=== PATIENT | male | born 1990 | race Caucasian/White ===

== ENCOUNTER 2018-06-11 13:13 | Inpatient (IN) | payer SELFPAY ==
[2018-06-11 13:16] VITALS: BMI 29.9
[2018-06-11] MEDS ORDERED: SODIUM CHLORIDE 1,000 ML IV STA (14:06)
[2018-06-11] MEDS ORDERED: ALBUTEROL SO4 2.5/IPRATROPIUM 0.5 INH SOL 3 ML VIAL.NEB. NEB ONE (14:11)
--- NOTE | 2018-06-11 14:12 | PDOC ---
History of Present Illness - General Chief Complaint: Diarrhea Stated Complaint: SENT BY PCP Time Seen by Provider: 06/11/18 13:44 History Source: Patient Exam Limitations: No Limitations - History of Present Illness Initial Comments: 06/11/18 18:16 Patient is a 28-year-old male past medical history of HIV (CD4 > 1000, viral load < 20 1 mo ago) presents to the ER with 1 day of diarrhea and abdominal cramping. Patient states he went to see his primary care doctor however he was referred to the ER for sinus tachycardia at 120 with associated symptoms. Patient states he last ate a coffee and cinnamon stick from [employer] yesterday. He also admits to palpitations and headache. Denies fevers, chills, shortness of breath, difficulty breathing, nausea, vomiting, constipation comfort, urgency and hematuria. Patient did receive a flu shot this year. Past History - Travel Traveled outside of the country in the last 30 days: No Close contact w/someone who was outside of country & ill: No - Past Medical History Allergies/Adverse Reactions: Allergies Allergy/AdvReac Type Severity Reaction Status Date / Time Fish Containing Products Allergy Unknown Verified 06/08/15 23:14 Home Medications: Ambulatory Orders Emtricitab/Rilpiviri/Tenof Ala [Odefsey Tablet] 1 each PO DAILY #30 tablet 01/20 Loratadine [Claritin -] 10 mg PO DAILY #30 tablet 04/27/18 Multivitamin,Ther and Minerals [Vitamin and Minerals] 1 each PO DAILY #30 tablet 04/27/18 Albuterol Sulfate Inhaler - [Ventolin HFA Inhaler -] 1 - 2 inh PO QID PRN #1 inhaler 05/11/18 Famotidine [Pepcid -] 20 mg PO DAILY PRN #30 tablet 05/11/18 Fluticasone Propionate [Flovent Diskus] 100 mcg IH BID #1 disk.w.dev 05/11/18 Lactobacillus Acidophilus [Bacid -] 1 each PO DAILY #30 capsule 06/13/18 Levofloxacin 750 mg PO DAILY #7 tablet 06/13/18 Metronidazole 500 mg PO Q8H #21 tablet 06/13/18 Anemia: No Asthma: Yes Cancer: No Cardiac Disorders: No CVA: No COPD: No CHF: No Dementia: No Diabetes: No GI Disorders: No Disorders: No HTN: No Hypercholesterolemia: No Liver Disease: No Seizures: No Thyroid Disease: No - Surgical History Abdominal Surgery: No Appendectomy: No Cardiac Surgery: No Cholecystectomy: No Lung Surgery: No Neurologic Surgery: No Orthopedic Surgery: No - Immunization History Immunization Up to Date: Yes - Suicide/Smoking/Psychosocial Hx Smoking Status: No Smoking History: Never smoked Have you smoked in the past 12 months: No Number of Cigarettes Smoked Daily: 0 Cigars Per Day: 0 Hx Alcohol Use: Yes (1 drink/week) Drug/Substance Use Hx: No Substance Use Type: None Hx Substance Use Treatment: No Review of Systems - Review of Systems Able to Perform ROS?: Yes Comments:: 06/11/18 19:04 CONSTITUTIONAL: Absent: fever, chills, diaphoresis, generalized weakness, malaise, loss of appetite HEENT: Absent: rhinorrhea, nasal congestion, throat pain, throat swelling, difficulty swallowing, mouth swelling, ear pain, eye pain, visual Changes CARDIOVASCULAR: Absent: chest pain, loss of consciousness, palpitations, irregular heart rate, peripheral edema RESPIRATORY: Absent: cough, shortness of breath, dyspnea with exertion, orthopnea, wheezing, stridor, hemoptysis GASTROINTESTINAL: Present: diarrhea Absent: abdominal pain, abdominal distension, nausea, vomiting , constipation, melena, hematochezia GENITOURINARY: Absent: dysuria, frequency, urgency, hesitancy, hematuria, flank pain, genital pain MUSCULOSKELETAL: Absent: myalgia, arthralgia, joint swelling SKIN: Absent: rash, itching, pallor HEMATOLOGIC/IMMUNOLOGIC: Absent: easy bleeding, easy bruising, lymphadenopathy, frequent infections ENDOCRINE: Absent: unexplained weight gain, unexplained weight loss, heat intolerance, cold intolerance NEUROLOGIC: Absent: headache, focal weakness or paresthesias, dizziness, unsteady gait, seizure, mental status changes, bladder or bowel incontinence PSYCHIATRIC: Absent: anxiety, depression, suicidal or homicidal ideation, hallucinations. Is the patient limited Amharic proficient: No *Physical Exam - Vital Signs Last Vital Signs Temp Pulse Resp BP Pulse Ox 99.4 F 110 H 18 136/75 96 06/11/18 13:15 06/11/18 13:15 06/11/18 13:15 06/11/18 13:15 06/11/18 13:15 - Physical Exam Comments: 06/11/18 19:04 GENERAL: Well developed, well nourished. Awake and alert. No acute distress. HEENT: Normocephalic, atraumatic. PERRLA, EOMI. No conjunctival pallor. Sclera are non- icteric. Moist mucous membranes. Oropharynx is clear. NECK: Supple. Full ROM. No JVD. Carotid pulses 2+ and symmetric, without bruits. No thyromegaly. No lymphadenopathy. CARDIOVASCULAR: Regular rate and rhythm. No murmurs, rubs, or gallops. Distal pulses are 2+ and symmetric. PULMONARY: No evidence of respiratory distress. Lungs clear to auscultation bilaterally. No wheezing, rales or rhonchi. ABDOMINAL: Epigastric tenderness and RLQ, LLQ pain to palpation. Soft. Non-distended. No rebound or guarding. No organomegaly. Normoactive bowel sounds. MUSCULOSKELETAL Normal range of motion at all joints. No bony deformities or tenderness. No CVA tenderness. EXTREMITIES: No cyanosis. No clubbing. No edema. No calf tenderness. SKIN: Warm and dry. Normal capillary refill. No rashes. No jaundice. NEUROLOGICAL: Alert, awake, appropriate. Cranial nerves 2-12 intact. No deficits to light touch and temperature in face, upper extremities and lower extremities. No motor deficits in the in face, upper extremities and lower extremities. Normoreflexic in the upper and lower extremities. Normal speech. Toes are down- going bilaterally. Gait is normal without ataxia. PSYCHIATRIC: Cooperative. Good eye contact. Appropriate mood and affect. Moderate Sedation - Procedure Monitoring Vital Signs: Procedure Monitoring Vital Signs Temperature 99.4 F 06/11/18 13:15 Pulse Rate 110 H 06/11/18 13:15 Respiratory Rate 18 06/11/18 13:15 Blood Pressure 136/75 06/11/18 13:15 O2 Sat by Pulse Oximetry (%) 96 06/11/18 13:15 ED Treatment Course - LABORATORY CBC & Chemistry Diagram: 06/13/18 06:30 06/13/18 06:30 *DC/Admit/Observation/Transfer Diagnosis at time of Disposition: Colitis - Discharge Dispostion Condition at time of disposition: Stable - Prescriptions - Referrals - Patient Instructions - Post Discharge Activity
[2018-06-11 15:35] LABS: BASO % 0.4 % (0-2.0); EOS % 0.1 % (0-4.5); HEMATOCRIT 44.9 % (35.4-49); HEMOGLOBIN 15.6 GM/dL (11.7-16.9); LYMPH % 13.3 % (8-40); MCHC 34.8 g/dl (32.0-35.9); MEAN CELL VOLUME 91.8 fl (80-96); MEAN PLT VOLUME 9.9 fl (7.5-11.1); NEUT % 78.2 % (42.8-82.8); PLATELET COUNT 216 K/MM3 (134-434); RBC 4.89 M/mm3 (4.00-5.60); RDW 13.4 % (11.9-15.9); WHITE BLOOD COUNT 15.6 K/mm3 (4.0-10.0)
[2018-06-11 16:23] LABS: ALBUMIN 4.3 g/dl (3.4-5.0); ALK PHOS 66 U/L (45-117); ANION GAP 9 MMOL/L (8-16); BILIRUBIN,TOTAL 0.8 mg/dL (0.2-1); BLOOD UREA NITROGEN 13 mg/dL (7-18); CALCIUM 8.9 mg/dL (8.5-10.1); CHLORIDE 102 mmol/L (98-107); CO2 27 mmol/L (21-32); CREATININE 1.1 mg/dL (0.55-1.3); GLUCOSE,RANDOM 80 mg/dL (74-106); POTASSIUM 3.8 mmol/L (3.5-5.1); SGOT/AST 23 U/L (15-37); SGPT/ALT 26 U/L (13-61); SODIUM 137 mmol/L (136-145); TOT PROT 8.4 g/dl (6.4-8.2)
[2018-06-11 17:27] LABS: URINE APPEARANCE CLEAR; URINE BILIRUBIN NEGATIVE (<2.0 mg/dL); URINE COLOR DKYELLOW; URINE GLUCOSE (UA) NEGATIVE (NEGATIVE); URINE KETONE TRACE (NEGATIVE); URINE LEUK ESTERASE NEGATIVE (NEGATIVE); URINE NITRITE NEGATIVE (NEGATIVE); URINE PROTEIN 1+ (NEGATIVE); URINE UROBILINOGEN NEGATIVE mg/dL (0.2-1.0)
[2018-06-11 17:37] LABS: URINE BACTERIA RARE /hpf (NONE SEEN); URINE MUCUS MODERATE
[2018-06-11] MEDS ORDERED: CIPROFLOXACIN 400 MG/D5W 400 MG/200 ML IVPB IVPB ONE (21:04)
--- NOTE | 2018-06-11 21:14 | PDOC ---
*Physical Exam - Vital Signs Last Vital Signs Temp Pulse Resp BP Pulse Ox 99.4 F 110 H 18 136/75 96 06/11/18 13:15 06/11/18 13:15 06/11/18 13:15 06/11/18 13:15 06/11/18 13:15 ED Treatment Course - LABORATORY CBC & Chemistry Diagram: 06/11/18 15:24 06/11/18 15:24 - ADDITIONAL ORDERS Additional order review: Laboratory Results 06/11/18 06/11/18 17:13 15:24 Sodium 137 Potassium 3.8 Chloride 102 Carbon Dioxide 27 Anion Gap 9 BUN 13 Creatinine 1.1 Creat Clearance w eGFR > 60 Random Glucose 80 Calcium 8.9 Total Bilirubin 0.8 AST 23 ALT 26 Alkaline Phosphatase 66 Total Protein 8.4 H Albumin 4.3 Urine Color Dkyellow Urine Appearance Clear Urine pH 5.0 Ur Specific [place] 1.030 Urine Protein 1+ H Urine Glucose (UA) Negative Urine Ketones Trace H Urine Blood Negative Urine Nitrite Negative Urine Bilirubin Negative Urine Urobilinogen Negative Ur Leukocyte Esterase Negative Urine WBC (Auto) <1 Urine RBC (Auto) None Urine Bacteria Rare Urine Mucus Moderate 06/11/18 15:24 RBC 4.89 MCV 91.8 MCHC 34.8 RDW 13.4 MPV 9.9 Neutrophils % 78.2 D Lymphocytes % 13.3 D Monocytes % 8.0 Eosinophils % 0.1 D Basophils % 0.4 - Medications Given in the ED: ED Medications Discontinued Medications Generic Name Dose Route Start Last Admin Trade Name Freq PRN Reason Stop Dose Admin Albuterol/Ipratropium 1 amp 06/11/18 14:11 06/11/18 15:34 Duoneb - NEB 06/11/18 14:12 1 amp ONCE ONE Administration Sodium Chloride 1,000 mls @ 1,000 mls/hr 06/11/18 14:06 06/11/18 15:34 Normal Saline - IV 06/11/18 15:05 1,000 mls/hr ASDIR STA Administration Medical Decision Making - Medical Decision Making Patient signed out to me by MATILDE Benson CT raises concern for possible colitis vs appendicitis (no oral contrast was administered for test) On assessment, patient appears comfortable, abdomen with TTP along RUQ and RLQ ( RLQ > RUQ) Will start on Cipro and Flagyl D/W Dr. Aden - recommend admission for further eval given inconclusive CT results 06/11/18 21:11 *DC/Admit/Observation/Transfer Diagnosis at time of Disposition: Colitis - Discharge Dispostion Condition at time of disposition: Stable Decision to Admit order: Yes - Referrals Referrals: Garima Goldstein, [facility] [Primary Care Provider] - - Patient Instructions - Post Discharge Activity
--- NOTE | 2018-06-11 21:53 | HP ---
CHIEF COMPLAINT: Diarrhea PCP: Dr. Garima Goldstein HISTORY OF PRESENT ILLNESS: 28yo M with h/o HIV (CD4 >1000, VL <20 1 mo. prior) who presents today with 2 days of foul-smelling water-y diarrhea. Pt reports symptoms started two days ago after having [employer] latte and cinnamon stick. He reports >12 episodes of diarrhea in the past 24hrs. Pt initially thought it was a common virus and decided to see his PCP 1 day into his symptoms, however after being found to have severe diarrhea and sinus tachy to 120bpm he was recommended to go to the ER. Pt also endorses associated cramping RLQ and lower R-mid region pain which at maximum intensity is a 9/10 and lowest intensity is 4/10. He has tried to eat and drink, however has had 3 episodes of NB/NB emesis. Of noted, pt had strep pharyngitis 1-2 wks prior and was given Clindamycin for 7 days. Pt reports resolved pharyngitis symptoms. Denies any headache, lightheadedness, blurry vision, nausea, shortness of breath , chest pain, dysuria, polyuria, hematuria, back pain, edema of lower extremities. Denies any travel outside of [facility] recently. Denies sick contacts. Denies other unusual meals compared to his regular diet. PAST MEDICAL HISTORY: HIV (from ex-bf, follows at [facility] regularly; compliant with Odefsey) PAST SURGICAL HISTORY: None Social History: Smoking: Denies Alcohol: Denies Drugs: Denies Family History: Noncontributory Allergies Fish Containing Products Allergy (Unknown, Verified 06/08/15 23:14) RAST test 01/08/13 Fish/Shell Mix 4.02, Class IV HOME MEDICATIONS: Home Medications Medication Instructions Recorded Emtricitab/Rilpiviri/Tenof Ala 1 each PO DAILY #30 tablet 01/20/18 [Odefsey Tablet] Multivitamin,Ther and Minerals 1 each PO DAILY #30 tablet 04/27/18 [Vitamin and Minerals] Albuterol Sulfate Inhaler - 1 - 2 inh PO QID PRN #1 inhaler 05/11/18 [Ventolin HFA Inhaler -] Fluticasone Prop 0.05% Nasal 1 - 2 spray NS DAILY #1 spray.pump 05/11/18 [Flonase -] REVIEW OF SYSTEMS As Per HPI PHYSICAL EXAMINATION Vital Signs - 24 hr 06/11/18 06/11/18 13:15 21:46 Temperature 99.4 F 99.6 F Pulse Rate 110 H Pulse Rate [ 108 H Apical] Respiratory 18 18 Rate Blood Pressure 136/75 Blood Pressure 132/80 [Left Arm] O2 Sat by Pulse 96 98 Oximetry (%) GENERAL: NAD, awake, alert, and fully oriented HEENT: NC/AT, EOMI, HERO, sclera anicteric, dry-moist mucosa, no plaques noted , no posterior oropharynx erythema or exudates, no ulcerations. No lymphadenopathy LUNGS: CTA bilaterally. No wheezes, and no crackles. No accessory muscle use. HEART: Tachycardic, regular rhythm, normal S1 and S2 without murmur ABDOMEN: Soft, RLQ tenderness to palpation, normo-hyperactive BS, nondistended, nontympanitic, no guarding, no rebound, negative [place], Psoas, and Obturator sign. MUSCULOSKELETAL: No CVA tenderness. EXTREMITIES: 2+ radial pulses, warm, well-perfused. No peripheral edema. NEUROLOGICAL: Nonfocal exam. Normal speech. Normal gait. PSYCHIATRIC: Cooperative. Good eye contact. Appropriate mood and affect. SKIN: Warm, dry, no rashes or lesions noted Laboratory Results 06/11/18 06/11/18 06/11/18 15:23 15:24 15:24 WBC 15.6 H RBC 4.89 Hgb 15.6 Hct 44.9 MCV 91.8 MCH 32.0 MCHC 34.8 RDW 13.4 Plt Count 216 MPV 9.9 Absolute Neuts (auto) 12.2 H Neutrophils % 78.2 D Lymphocytes % 13.3 D Monocytes % 8.0 Eosinophils % 0.1 D Basophils % 0.4 Nucleated RBC % 0 Sodium 137 Potassium 3.8 Chloride 102 Carbon Dioxide 27 Anion Gap 9 BUN 13 Creatinine 1.1 Creat Clearance w eGFR > 60 Random Glucose 80 Calcium 8.9 Total Bilirubin 0.8 AST 23 ALT 26 Alkaline Phosphatase 66 Total Protein 8.4 H Albumin 4.3 Urine Color Urine Appearance Urine pH Ur Specific [place] Urine Protein Urine Glucose (UA) Urine Ketones Urine Blood Urine Nitrite Urine Bilirubin Urine Urobilinogen Ur Leukocyte Esterase Urine WBC (Auto) Urine RBC (Auto) Urine Bacteria Urine Mucus Influenza A (Rapid) Negative Influenza B (Rapid) Negative 06/11/18 17:13 WBC RBC Hgb Hct MCV MCH MCHC RDW Plt Count MPV Absolute Neuts (auto) Neutrophils % Lymphocytes % Monocytes % Eosinophils % Basophils % Nucleated RBC % Sodium Potassium Chloride Carbon Dioxide Anion Gap BUN Creatinine Creat Clearance w eGFR Random Glucose Calcium Total Bilirubin AST ALT Alkaline Phosphatase Total Protein Albumin Urine Color Dkyellow Urine Appearance Clear Urine pH 5.0 Ur Specific [place] 1.030 Urine Protein 1+ H Urine Glucose (UA) Negative Urine Ketones Trace H Urine Blood Negative Urine Nitrite Negative Urine Bilirubin Negative Urine Urobilinogen Negative Ur Leukocyte Esterase Negative Urine WBC (Auto) <1 Urine RBC (Auto) None Urine Bacteria Rare Urine Mucus Moderate Influenza A (Rapid) Influenza B (Rapid) ASSESSMENT/PLAN: PO intolerance 2/2 to acute colitis Leukocytosis HIV infection --Bowel rest --Continue to hydrate NS@125cc/hr --Levaquin 750mg daily IVPB --Flagyl 500mg q8h IVPB --C. diff ordered --Ova and parasites ordered --Images reviewed --Due to prominence of appendix will consult surgery for recommendations --Continue Odefsey daily (home dose) -Current VL undetectable FEN: Fluids: NS@125cc/hr; can bolus as needed Electrolyte abnormalities: None currently Nutrition: Bowel rest for now PPX: DVT - Low risk; early ambulation Dispo: Med-surg, r/o C. diff Case discussed with Dr. Carla Downs, Do - IM PGY-2 Visit type - Emergency Visit Emergency Visit: Yes ED Registration Date: 06/11/18 Care time: The patient presented to the Emergency Department on the above date and was hospitalized for further evaluation of their emergent condition. - New Patient This patient is new to me today: Yes Date on this admission: 06/12/18 - Critical Care Critical Care patient: No
[2018-06-11] MEDS: SODIUM CHLORIDE 1,000 ML IV SCH (23:03)
--- NOTE | 2018-06-12 02:10 | PN ---
Teaching Attending Note Name of Resident: Ezio Garcia ATTENDING PHYSICIAN STATEMENT I saw and evaluated the patient. I reviewed the resident's note and discussed the case with the resident. I agree with the resident's findings and plan as documented. SUBJECTIVE: Seen and examined; please see resident note for further historical information. Briefly, this is a 28 y/o male presenting to the ER with a CC of abdominal pain; he has a PMH of HIV on HAART and he states he is compliant with all medications. Last CD4 >1000 at [facility]. He has 2 days of watery, foul smelling diarrhea and abdominal pain worse R>L. He also had some nausea and an episode of bilious vomiting. The symptoms progressed thus he chose to come to the ER after being recommended to do so by his PCP. Of note is that he completed a course of clindamycin for strep pharyngitis 2 weeks ago with no complications. CT done in the ER shows appendicitis/collit 10 sys ROS done and negative aside from HPI PMH, PSH, Family hx, Social hx reviewed Medications reviewed; pending reconciliation OBJECTIVE: VS, labs, imaging reviewed NAD, AAO, resting comforably in chair NC AT EOMI PERRLA Tender R>L with slight distention, +BS Lungs CTAB, w/ sym exp RRR s1/2 no mgr CN2-12 wnl, no fnd Normal mood, appropriate affect CT reviewed; R-concentric wall edema in the R-colon which could represent colitis vs. underdistention. Recommended followup with PO contrast to be considered to help facilitate R-colon imaging. Furthermore, the appendiz is slightly prominent with some fluid in the lumen and minimal to mild wall thickening. Acute appendicitis vs. reactive to the previously described colitis. ASSESSMENT AND PLAN: Patient presents with likely colitis +/- appendicitis; history of HIV on HAART and is compliant. 1) Acute Colitis +/- Appendicitis -Noted on imaging; will keep him NPO and place him on maintenance fluids. Med surg floor. -Pain and nausea control -Levaquin and Flagyl; convert to PO when clinically appropriate -Surgical consult; further imaging per thier service 2) HIV on HAART -Continue home medications Full Code
[2018-06-12] MEDS: SODIUM CHLORIDE 1,000 ML IV SCH ×3 (02:30→22:22)
[2018-06-12 08:23] LABS: HEMATOCRIT 38.3 % (35.4-49); HEMOGLOBIN 13.4 GM/dL (11.7-16.9); MCH 31.9 pg (25.7-33.7); MCHC 34.9 g/dl (32.0-35.9); MEAN CELL VOLUME 91.4 fl (80-96); MEAN PLT VOLUME 9.6 fl (7.5-11.1); PLATELET COUNT 173 K/MM3 (134-434); RBC 4.19 M/mm3 (4.00-5.60); RDW 13.4 % (11.9-15.9); WHITE BLOOD COUNT 9.3 K/mm3 (4.0-10.0)
[2018-06-12 08:53] LABS: ANION GAP 5 MMOL/L (8-16); BLOOD UREA NITROGEN 9 mg/dL (7-18); CALCIUM 7.7 mg/dL (8.5-10.1); CHLORIDE 108 mmol/L (98-107); CO2 26 mmol/L (21-32); GLUCOSE,RANDOM 90 mg/dL (74-106); PHOSPHOROUS 2.7 mg/dL (2.5-4.9); POTASSIUM 3.5 mmol/L (3.5-5.1); SODIUM 139 mmol/L (136-145)
[2018-06-12] MEDS ORDERED: PT OWN MED DRAWER 7, Y5N ONE (09:02)
[2018-06-12] MEDS ORDERED: CEFTRIAXONE 1 GM in DEXTROSE 5%-WATER - 50 ML IVPB SCH (10:00)
--- NOTE | 2018-06-12 11:21 | PN ---
Progress Note, Physician - Current Medication List Current Medications: Active Medications Metronidazole (Flagyl 500mg Premixed Ivpb -) 500 mg in 100 mls @ 100 mls/hr IVPB Q8H-IV SENA Last Admin: 06/12/18 09:24 Dose: 100 mls/hr Sodium Chloride (Normal Saline -) 1,000 mls @ 125 mls/hr IV ASDIR SENA Last Admin: 06/12/18 02:30 Dose: 125 mls/hr Levofloxacin (Levaquin 750 Mg Premixed Ivpb -) 750 mg in 150 mls @ 100 mls/hr IVPB DAILY SENA; Protocol Last Admin: 06/12/18 10:29 Dose: 100 mls/hr - Objective Vital Signs: Vital Signs Temperature 98.0 F 06/12/18 06:00 Pulse Rate 87 06/12/18 06:00 Respiratory Rate 20 06/12/18 06:00 Blood Pressure 102/67 06/12/18 06:00 O2 Sat by Pulse Oximetry (%) 99 06/12/18 03:55 Labs: CBC, BMP 06/12/18 07:40 06/12/18 07:40
--- NOTE | 2018-06-12 11:22 | CONSULT ---
Consult Consult Specialty:: General Surgery Reason for Consultation:: Appendicitis? - History of Present Illness Chief Complaint: diarrhea History of Present Illness: 28yo male PMH HIV (CD4 >1000, VL <20 1 mo. prior) who presents today with 2 days of foul-smelling water-y diarrhea. Pt reports symptoms started two days ago after having [employer] latte and cinnamon stick. He reports >12 episodes of diarrhea in the past 24hrs. Pt initially thought it was a common virus and decided to see his PCP 1 day into his symptoms, however after being found to have severe diarrhea and sinus tachy to 120bpm he was recommended to go to the ER. Pt also endorses associated cramping RLQ and lower R-mid region pain which at maximum intensity is a 9/10 and lowest intensity is 4/10. He has tried to eat and drink, however has had 3 episodes of NB/NB emesis. We were asked to assess. - History Source History Provided By: Patient, Medical Record Limitations to Obtaining History: No Limitations - Alcohol/Substance Use Hx Alcohol Use: Yes (1 drink/week) History of Substance Use: reports: None - Smoking History Smoking history: Never smoked Have you smoked in the past 12 months: No Aproximately how many cigarettes per day: 0 - Social History Usual Living Arrangement: With Spouse History of Recent Travel: No Home Medications - Allergies Allergies/Adverse Reactions: Allergies Allergy/AdvReac Type Severity Reaction Status Date / Time Fish Containing Products Allergy Unknown Verified 06/08/15 23:14 - Home Medications Home Medications: Ambulatory Orders Emtricitab/Rilpiviri/Tenof Ala [Odefsey Tablet] 1 each PO DAILY #30 tablet 01/20 Loratadine [Claritin -] 10 mg PO DAILY #30 tablet 04/27/18 Multivitamin,Ther and Minerals [Vitamin and Minerals] 1 each PO DAILY #30 tablet 04/27/18 Albuterol Sulfate Inhaler - [Ventolin HFA Inhaler -] 1 - 2 inh PO QID PRN #1 inhaler 05/11/18 Famotidine [Pepcid -] 20 mg PO DAILY PRN #30 tablet 05/11/18 Fluticasone Prop 0.05% Nasal [Flonase -] 1 - 2 spray NS DAILY #1 spray.pump Fluticasone Propionate [Flovent Diskus] 100 mcg IH BID #1 disk.w.dev 05/11/18 Family Disease History - Family Disease History Family Disease History: Diabetes: Mother (pre-diabetes), Heart Disease: Grandparent (maternal GM - HTN, heart murmur, a.fib, COPD), Father (coronary artery disease, h/o bypass) Review of Systems - Review of Systems Constitutional: denies: Chills, Fever Eyes: denies: Blind Spots, Recent Change in Vision HENT: denies: Difficult Swallowing, Throat Pain Neck: denies: Decreased ROM, Pain on Movement Cardiovascular: denies: Chest Pain, Palpitations Respiratory: denies: Cough, SOB Gastrointestinal: reports: Abdominal Pain, Diarrhea. denies: Bloating, Constipation, Indigestion, Melena, Nausea, Vomiting Genitourinary: reports: Burning, Dysuria. denies: Discharge, Frequency Breasts: reports: No Symptoms Reported. denies: Pain Musculoskeletal: denies: Muscle Pain, Muscle Weakness Neurological: denies: Syncope, Tremors Endocrine: denies: Unexplained Weight Gain, Unexplained Weight Loss Hematology/Lymphatic: denies: Easily Bruised, Excessive Bleeding Psychiatric: denies: Anxiety, Depression Physical Exam Vital Signs: Vital Signs Temperature 98.0 F 06/12/18 06:00 Pulse Rate 87 06/12/18 06:00 Respiratory Rate 20 06/12/18 06:00 Blood Pressure 102/67 06/12/18 06:00 O2 Sat by Pulse Oximetry (%) 99 06/12/18 03:55 Constitutional: Yes: Well Nourished, No Distress, Calm Eyes: Yes: Conjunctiva Clear, EOM Intact HENT: Yes: Atraumatic, Normocephalic Neck: Yes: Supple, Trachea Midline Cardiovascular: Yes: Regular Rate and Rhythm, S1, S2 Respiratory: Yes: Regular, CTA Bilaterally Gastrointestinal: Yes: Normal Bowel Sounds, Soft. No: Abdomen, Obese, Ascites, Hepatomegaly, Hernia, Palpable Mass, Tenderness, Tenderness, Epigastrium, Tenderness, Rebound ...Rectal Exam: Yes: Sphincter Tone Normal. No: Hemorrhoids/External Renal/: No: CVA Tenderness - Left, CVA Tenderness - Right Breast(s): No: Gynecomastia, Mass Musculoskeletal: No: Muscle Pain, Muscle Weakness Extremities: No: Cool, Cyanosis Edema: No Peripheral Pulses WNL: Yes Integumentary: No: Jaundice, Rash, Skin Tear Neurological: Yes: Alert, Oriented Psychiatric: Yes: Alert, Oriented Labs: CBC, BMP 06/12/18 07:40 06/12/18 07:40 Imaging - Results Cat Scan: Report Reviewed, Image Reviewed (appendix is patent contrast filled) Problem List - Problems (1) Diarrhea Assessment/Plan: 28yo with MMP presents with diarrhea, andominal pain has improved. Non-tender on exam. Reviewed CT scan [facility] radiologist. No acute surgical intervention is indicated. IVF hydration supportive medical care send C. diff screening recall as needed Thank you for the opportunity to participate in the care of this patient. Code(s): R19.7 - DIARRHEA, UNSPECIFIED Qualifiers: Diarrhea type: presumed infectious Qualified Code(s): R19.7 - Diarrhea, unspecified (2) Asymptomatic HIV infection Code(s): Z21 - ASYMPTOMATIC HUMAN IMMUNODEFICIENCY VIRUS INFECTION STATUS (3) Gastroenteritis Code(s): K52.9 - NONINFECTIVE GASTROENTERITIS AND COLITIS, UNSPECIFIED (4) Asthma Code(s): J45.909 - UNSPECIFIED ASTHMA, UNCOMPLICATED Qualifiers: Asthma severity: mild Asthma persistence: intermittent Asthma complication type: uncomplicated Qualified Code(s): J45.20 - Mild intermittent asthma, uncomplicated
--- NOTE | 2018-06-12 12:32 | PN ---
Progress Note (short form) - Note Progress Note: states abdominal pain has improved. diarrhea persists. denies Cp, SOB, fever, chills, N/V/C. was on clindamycin for scrotal infection for 10days which he recently completed Current Medications Generic Name Dose Route Start Last Admin Trade Name Melany PRN Reason Stop Dose Admin Metronidazole 500 mg in 100 mls @ 100 mls/hr 06/12/18 06:00 06/12/18 09:24 Flagyl 500mg Premixed Ivpb - IVPB 100 mls/hr Q8H-IV SENA Administration Sodium Chloride 1,000 mls @ 125 mls/hr 06/11/18 22:45 06/12/18 02:30 Normal Saline - IV 125 mls/hr ASDIR SENA Administration Levofloxacin 750 mg in 150 mls @ 100 mls/hr 06/12/18 10:00 06/12/18 10:29 Levaquin 750 Mg Premixed Ivpb - IVPB 100 mls/hr DAILY SENA Administration Protocol Last Vital Signs Temp Pulse Resp BP Pulse Ox 98.0 F 82 20 103/51 L 99 06/12/18 08:55 06/12/18 08:55 06/12/18 08:55 06/12/18 08:55 06/12/18 03:55 General NAD CV S1 S2 RRR no murmur/rub/gallop LUngs CTA B/L No wheezing/rales/rhonchi Abdomen +RLQ tenderness ND, no rebound or guarding. neg mcburny point, neg obtruator sign CBCD WBC 9.3 K/mm3 (4.0-10.0) 06/12/18 07:40 RBC 4.19 M/mm3 (4.00-5.60) 06/12/18 07:40 Hgb 13.4 GM/dL (11.7-16.9) 06/12/18 07:40 Hct 38.3 % (35.4-49) 06/12/18 07:40 MCV 91.4 fl (80-96) 06/12/18 07:40 MCHC 34.9 g/dl (32.0-35.9) 06/12/18 07:40 RDW 13.4 % (11.9-15.9) 06/12/18 07:40 Plt Count 173 K/MM3 (134-434) 06/12/18 07:40 MPV 9.6 fl (7.5-11.1) 06/12/18 07:40 CMP Sodium 139 mmol/L (136-145) 06/12/18 07:40 Potassium 3.5 mmol/L (3.5-5.1) 06/12/18 07:40 Chloride 108 mmol/L (98-107) H 06/12/18 07:40 Carbon Dioxide 26 mmol/L (21-32) 06/12/18 07:40 Anion Gap 5 MMOL/L (8-16) L 06/12/18 07:40 BUN 9 mg/dL (7-18) 06/12/18 07:40 Creatinine 1.0 mg/dL (0.55-1.3) 06/12/18 07:40 Creat Clearance w eGFR > 60 (>60) 06/12/18 07:40 Calcium 7.7 mg/dL (8.5-10.1) L 06/12/18 07:40 Total Bilirubin 0.8 mg/dL (0.2-1) 06/11/18 15:24 AST 23 U/L (15-37) 06/11/18 15:24 ALT 26 U/L (13-61) 06/11/18 15:24 Alkaline Phosphatase 66 U/L (45-117) 06/11/18 15:24 Total Protein 8.4 g/dl (6.4-8.2) H 06/11/18 15:24 Albumin 4.3 g/dl (3.4-5.0) 06/11/18 15:24 Microbiology 06/12/18 02:40 Stool Clostridium difficile Antigen (TAL) - Preliminary 06/12/18 02:40 Stool Clostridium difficile Toxin Assay - Preliminary A/P 28yo M wtih PMH HIV on HARRT presented to the ER [facility] abdominal pain and diarrhea and found to have acute colitis 1. Sepsis due to acute colitis- clinically improved. continues to have diarrhea. will advance to clear liquids as tolerated, with instruction to stop if pain worsens, levaquin and flagyl day 2, IVF and pain control. check stool studies cdiff and cx. surgery consulted for suspicion for appendicitis. CT scan also showing some swelling around the appendix however i do not think pt has acute appendicitis based on clinical exam. low suspicion for CMV based on high CD4 counts. This is his 1st episode. low suspicion for inflammatory disease 2. HIV on HARRT- resume therapy 3. DVT ppx- SCD 4. spoke with present at bedside. all questions answered. expect discharge in 24-48H
[2018-06-12] MEDS ORDERED: EMTRICITAB/RILPIVIRI/TENOF ALA (ODEFSEY) TABLET PO SCH (18:00)
[2018-06-12] MEDS ORDERED: ACETAMINOPHEN 325 MG TABLET (FP) PO ONE (19:56)
--- NOTE | 2018-06-12 22:04 | EKG ---
Test Reason : Blood Pressure : / mmHG Vent. Rate : 103 BPM Atrial Rate : 103 BPM P-R Int : 134 ms QRS Dur : 082 ms QT Int : 310 ms P-R-T Axes : 068 076 024 degrees QTc Int : 406 ms SINUS TACHYCARDIA POSSIBLE LEFT ATRIAL ENLARGEMENT BORDERLINE ECG NO PREVIOUS ECGS AVAILABLE Confirmed by KELSY WARD MD ([id number]) on 06/12/2018 10:04:23 PM Referred By: Confirmed By:KELSY WARD MD
[2018-06-13] MEDS: SODIUM CHLORIDE 1,000 ML IV SCH (05:39)
[2018-06-13 07:00] LABS: BASO % 0.4 % (0-2.0); EOS % 1.5 % (0-4.5); HEMATOCRIT 40.7 % (35.4-49); LYMPH % 31.6 % (8-40); MCH 31.5 pg (25.7-33.7); MCHC 34.3 g/dl (32.0-35.9); MEAN CELL VOLUME 91.7 fl (80-96); MEAN PLT VOLUME 9.3 fl (7.5-11.1); MONO % 10.4 % (3.8-10.2); NEUT % 56.1 % (42.8-82.8); PLATELET COUNT 199 K/MM3 (134-434); RBC 4.44 M/mm3 (4.00-5.60); RDW 13.1 % (11.9-15.9)
[2018-06-13 07:35] LABS: ANION GAP 3 MMOL/L (8-16); BLOOD UREA NITROGEN 6 mg/dL (7-18); CHLORIDE 108 mmol/L (98-107); CO2 29 mmol/L (21-32); CREATININE 0.9 mg/dL (0.55-1.3); GLUCOSE,RANDOM 88 mg/dL (74-106); POTASSIUM 3.7 mmol/L (3.5-5.1); SODIUM 140 mmol/L (136-145)
[2018-06-13 08:57] VITALS: BP 125/76; PULSE 78; TEMP 98
[2018-06-13] MEDS ORDERED: PT OWN MED DRAWER 7, Y5N ONE (10:17)
--- NOTE | 2018-06-13 12:18 | DS ---
Physical Exam: SUBJECTIVE: Patient seen and examined at bedside. Tolerating regular diet, no further n/v/d. No acute complaints, feeling well. OBJECTIVE: Vital Signs Period Temp Pulse Resp BP Sys/Fischer Pulse Ox Last 24 Hr 97.9 F-98.7 F 77-92 18-18 108-125/61-76 95 PHYSICAL EXAM GENERAL: A&Ox3, NAD HEENT: NC/AT, PERRLA, EOMI, MMM NECK: Trachea midline, full range of motion, supple. LUNGS: CTA b/l HEART: RRR no m/r/g ABDOMEN: +bs, soft, NT, ND EXTREMITIES: 2+ pulses, warm, well-perfused, no edema. 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 SKIN: Warm, dry, normal turgor, no rashes or lesions noted. LABS Laboratory Results - last 24 hr 06/13/18 06/13/18 06:30 06:30 WBC 8.0 RBC 4.44 Hgb 14.0 Hct 40.7 MCV 91.7 MCH 31.5 MCHC 34.3 RDW 13.1 Plt Count 199 MPV 9.3 Absolute Neuts (auto) 4.5 Neutrophils % 56.1 D Lymphocytes % 31.6 D Monocytes % 10.4 H Eosinophils % 1.5 D Basophils % 0.4 Nucleated RBC % 0 Sodium 140 Potassium 3.7 Chloride 108 H Carbon Dioxide 29 Anion Gap 3 L BUN 6 L Creatinine 0.9 Creat Clearance w eGFR > 60 Random Glucose 88 Calcium 8.0 L HOSPITAL COURSE: Date of Admission:06/11/18 Patient is a 28 y/o M w/ PMHx HIV (1 m/a: CD4 1000, VL<20) who presented w/ 2 days watery diarrhea and severe abdominal cramping with fluctuating pain up to 9 /[address] a/p showed mild right colonic and appendiceal inflammation. Surgery was consulted and determined that surgical intervention was not indicated. The patient was treated with IVF, IV ABx, and slow advancement of diet to regular. He was discharged after tolerating regular PO diet with an additional 7 days of PO ABx and a 1 month prescription for Bacid, with instructions for followup with primary care and resumption of HAART. Date of Discharge: 06/13/18 Minutes to complete discharge: 40 Discharge Summary Reason For Visit: COLITIS Current Active Problems Chest tightness (Acute) Colitis (Acute) Diarrhea (Acute) Palpitations (Acute) Asymptomatic HIV infection (Chronic) Condition: Stable - Instructions Diet, Activity, Other Instructions: You were hospitalized due to abdominal pain, diarrhea, and nausea/vomiting. CT scan showed mild inflammation of your colon and appendix. You were seen and evaluated by surgery which determined that there was no indication for surgical intervention in your case. You were treated with fluids, antibiotics, and slow re-introduction of a normal diet. You are being discharged on oral antibiotics and a probiotic to promote gut health in the setting of your antibiotic course. Please see your primary medical doctor for followup within 1 week of discharge, resume your home medications, and drink plenty of fluids. If you experience any new or worsening abdominal pain, diarrhea, vomiting, chest pain, shortness of breath, or any other new or concerning symptoms, please return to the Emergency Department. Medical recommendations: Take the following antibiotics upon discharge. Prescriptions have been sent to your pharmacy: Metronidazole (Flagyl) 500 mg every 8 hours (three times per day) for 7 days. Levofloxacin (Levaquin) 750 mg every day for 7 days. Bacid (probiotic) 1 tablet daily for one month. Do not stop taking antibiotics until your prescription is complete. Do not make any changes to your medication regimen without consulting your doctor. Otherwise please resume your normal home medications. Referrals: Garima Goldstein, CHECKER [Primary Care Provider] - Disposition: HOME - Home Medications Comprehensive Discharge Medication List: Ambulatory Orders Emtricitab/Rilpiviri/Tenof Ala [Odefsey Tablet] 1 each PO DAILY #30 tablet 01/20 Loratadine [Claritin -] 10 mg PO DAILY #30 tablet 04/27/18 Multivitamin,Ther and Minerals [Vitamin and Minerals] 1 each PO DAILY #30 tablet 04/27/18 Albuterol Sulfate Inhaler - [Ventolin HFA Inhaler -] 1 - 2 inh PO QID PRN #1 inhaler 05/11/18 Famotidine [Pepcid -] 20 mg PO DAILY PRN #30 tablet 05/11/18 Fluticasone Propionate [Flovent Diskus] 100 mcg IH BID #1 disk.w.dev 05/11/18 Lactobacillus Acidophilus [Bacid -] 1 each PO DAILY #30 capsule 06/13/18 Levofloxacin 750 mg PO DAILY #7 tablet 06/13/18 Metronidazole 500 mg PO Q8H #21 tablet 06/13/18 This patient is new to me today: Yes Date on this admission: 06/13/18 Emergency Visit: No Critical Care patient: No - Discharge Referral Referred to [facility] No
--- NOTE | 2018-06-13 12:32 | PN ---
Teaching Attending Note Name of Resident: Jm Eddy ATTENDING PHYSICIAN STATEMENT I saw and evaluated the patient. I reviewed the resident's note and discussed the case with the resident. I agree with the resident's findings and plan as documented. SUBJECTIVE:abdominal pain resolved. diarrhea resolved. denies Cp, SOB< fever, chills, N/V/C?D OBJECTIVE: Last Vital Signs Temp Pulse Resp BP Pulse Ox 98 F 78 18 125/76 95 06/13/18 08:56 06/13/18 08:56 06/13/18 09:00 06/13/18 08:56 06/13/18 09:00 General NAD Abdomen soft NT/ND ASSESSMENT AND PLAN: 28yo M wtih PMH HIV on HARRT presented to the ER wtih abdominal pain and diarrhea and found to have acute colitis 1. Sepsis due to acute colitis- clinically improved. abdominal pain and diarrhea resolved. tolerating liquid diet. will advance if tolerated can d/c home on levaquin and flagyl for 7 days. 2. HIV on HARRT- resume therapy 3. DVT ppx- SCD 4. spoke with present at bedside. all questions answered. d/c home. has appt with PMD tomorrow
== END 2018-06-13 12:21 | disposition home or self-care (01) | DRG 720 ==
LOC: JER 13:13 → JERBED 21:38 → J5S 06-12 02:15
PROVIDERS: ADMIT Internal Medicine; ATTEND Internal Medicine
DX: A41.9 Sepsis, unspecified organism (principal); K52.9 Noninfective gastroenteritis and colitis, unspecified; Z21 Asymptomatic human immunodeficiency virus [HIV] infection status; J45.909 Unspecified asthma, uncomplicated; J45.20 Mild intermittent asthma, uncomplicated
CPT/HCPCS: 36415; 71046-TC-FY; 74177-TC; 80048; 80053; 81003; 81015; 83735; 84100; 85025; 85027; 87205; 87324; 87449; 87804; 93005; 93010; 99285-25; J7030

== ENCOUNTER 2021-05-02 19:34 | Emergency (ER) | payer OTHER ==
[2021-05-02 19:53] VITALS: TEMP 98; BMI 30.4
[2021-05-02] MEDS ORDERED: KETOROLAC TROMETHAMINE 30 MG/1 ML VIAL IVPUSH ONE (20:48)
[2021-05-02] MEDS ORDERED: SODIUM CHLORIDE 0.9% 500 ML INFUS.BAG IV ONE (21:19)
[2021-05-02] MEDS ORDERED: KETOROLAC TROMETHAMINE 15 MG/ML VIAL ONE (21:39)
[2021-05-02 21:45] LABS: BASO % 0.5 % (0-2.0); EOS % 0.7 % (0-4.5); HEMATOCRIT 43.3 % (35.4-49); HEMOGLOBIN 14.8 GM/dL (11.7-16.9); LYMPH % 23.7 % (8-40); MCH 30.8 pg (25.7-33.7); MCHC 34.1 g/dl (32.0-35.9); MEAN CELL VOLUME 90.2 fl (80-96); MEAN PLT VOLUME 8.3 fl (7.5-11.1); MONO % 9.7 % (3.8-10.2); NEUT % 65.4 % (42.8-82.8); PLATELET COUNT 254 10^3/uL (134-434); RDW 13.7 % (11.9-15.9); WHITE BLOOD COUNT 11.8 K/mm3 (4.0-10.0)
[2021-05-02 21:50] LABS: EPI CELLS 11 /uL (0-25.1); HYALINE CASTS 3 /uL (0-3.1); PH,URINE 5.5 (5.0-8.0); URINE APPEARANCE TURBID; URINE BACTERIA >9,000 /uL (0-1359); URINE BILIRUBIN NEGATIVE (NEGATIVE); URINE COLOR YELLOW; URINE GLUCOSE (UA) NEGATIVE (NEGATIVE); URINE KETONE NEGATIVE (NEGATIVE); URINE LEUK ESTERASE 2+ (NEGATIVE); URINE NITRITE POSITIVE (NEGATIVE); URINE PROTEIN 2+ (NEGATIVE); URINE RBC 1602 /uL (0-23.9); URINE WBC 8039 /uL (0-25.8)
[2021-05-02 22:10] LABS: CALCIUM 9.5 mg/dL (8.5-10.1)
[2021-05-02 22:11] LABS: ALBUMIN 4.2 g/dl (3.4-5.0); BLOOD UREA NITROGEN 11.9 mg/dL (7-18)
[2021-05-02 22:16] LABS: BILIRUBIN,TOTAL 0.7 mg/dL (0.2-1); TOT PROT 7.9 g/dl (6.4-8.2)
[2021-05-02] MEDS ORDERED: CEFTRIAXONE 1 GM/50 ML BAG ONE (23:23)
[2021-05-02 23:44] VITALS: BP 122/70; PULSE 82
== END 2021-05-02 23:44 | disposition home or self-care (01) ==
LOC: JER 19:34
PROC: 3E03329 Introduction of Other Anti-infective into Peripheral Vein, Percutaneous Approach (ICD-10-PCS; principal; 2021-05-02)
PROC: 3E0333Z Introduction of Anti-inflammatory into Peripheral Vein, Percutaneous Approach (ICD-10-PCS; 2021-05-02)
DX: N30.01 Acute cystitis with hematuria (principal)
CPT/HCPCS: 36415; 76775-TC; 80053; 81003; 85025; 87086; 87186; 87491; 87591; 96374; 96375; 99284-25